=== PATIENT | male | born 1985 | race Caucasian/White ===

== ENCOUNTER → 2019-10-03 | Emergency (ER) | payer OTHER ==
[~2019-10-03] VITALS: Ht 175.3 cm; Wt 90.7 kg
[~2019-10-03] MED LIST: BACITRACIN TOP OINT 1 UD PKG TOP ONE; LIDOCAINE 1% HCL (LOCAL ANESTH.) INJ 20ML MDV ONE
[2019-10-03 19:02] VITALS: BP 144/11
== END | disposition left against medical advice (07) ==
LOC: ER 18:58
DX: S51.811A Laceration without foreign body of right forearm, initial encounter (principal); S51.851A Open bite of right forearm, initial encounter; F10.129 Alcohol abuse with intoxication, unspecified; Y90.8 Blood alcohol level of 240 mg/100 ml or more; W54.0XXA Bitten by dog, initial encounter; Y93.89 Activity, other specified; Y92.89 Other specified places as the place of occurrence of the external cause; Y99.8 Other external cause status
CPT/HCPCS: 36415; 80320; 99283; J2001

== ENCOUNTER → 2019-10-04 11:12 | Emergency (ER) | payer OTHER ==
[~2019-10-04 11:12] MED LIST changes: -BACITRACIN TOP OINT 1 UD PKG TOP ONE; +LIDOCAINE 1% HCL (LOCAL ANESTH.) INJ 20ML MDV IJ ONE; -LIDOCAINE 1% HCL (LOCAL ANESTH.) INJ 20ML MDV ONE; +TETANUS-DIPTH-ACEL PERTUSSIS 0.5ML SYR Tdap IM ONE; +cefTRIAXone SOD 1,000 MG VL IM ONE
[2019-10-04 12:20] VITALS: BP 158/101
== END | disposition home or self-care (01) ==
LOC: ER 11:12
DX: S51.812A Laceration without foreign body of left forearm, initial encounter (principal); S51.852A Open bite of left forearm, initial encounter; F17.210 Nicotine dependence, cigarettes, uncomplicated; W54.0XXA Bitten by dog, initial encounter; Y93.89 Activity, other specified; Y92.89 Other specified places as the place of occurrence of the external cause; Y99.8 Other external cause status
CPT/HCPCS: 12004; 73090; 90471; 90715; 96372; 99284; J0696; J2001

== ENCOUNTER 2019-10-07 15:39 | Emergency (ER) | payer OTHER ==
[~2019-10-07] VITALS: Ht 172.7 cm; Wt 86.2 kg
[2019-10-07 15:54] VITALS: BP 153/104
== END 2019-10-07 17:29 | disposition home or self-care (01) ==
LOC: ER 15:39
DX: S51.812D Laceration without foreign body of left forearm, subsequent encounter (principal); F17.210 Nicotine dependence, cigarettes, uncomplicated; W54.0XXD Bitten by dog, subsequent encounter

== ENCOUNTER 2019-10-16 09:27 | Emergency (ER) | payer OTHER ==
[~2019-10-16] VITALS: Ht 172.7 cm; Wt 86.2 kg
[2019-10-16 09:39] VITALS: BP 115/80
== END 2019-10-16 10:16 | disposition home or self-care (01) ==
LOC: ER 09:27
DX: S51.812D Laceration without foreign body of left forearm, subsequent encounter (principal); X58.XXXD Exposure to other specified factors, subsequent encounter